=== PATIENT | male | born 1945 | race Caucasian/White ===

== ENCOUNTER 2021-02-25 13:48 | Inpatient (IN) | payer MEDICARE, MEDICAID ==
[~2021-02-25] VITALS: Ht 177.8 cm; Wt 76.5 kg
--- NOTE | 2021-02-25 14:02 | NUR ---
TAISHA. REPORT RECEIVED FROM EMS. TRANSFFERED FROM [facility]. PT C/O INTERMITTENT SOB X 3 DAYS. PER EMS, PT HAS SECOND DEGREE AV BLOCK TYPE 2. PT DENIES ANY SYMPTOMS IN ROOM NOW. PT'S AOX4. RESPS EVEN AND UNLABORED. ALL MONITORS IN PLACE. CALL LIGHT WITHIN REACH.
[2021-02-25] MEDS ORDERED: AMLO-150 PO (14:03)
[2021-02-25] MEDS ORDERED: CHLO25TA PO (14:03)
[2021-02-25] MEDS ORDERED: LISI-170 PO (14:04)
[2021-02-25] MEDS ORDERED: FURO20TA3 PO (14:04)
[2021-02-25] MEDS ORDERED: HYDR100T25 PO (14:05)
[2021-02-25] MEDS ORDERED: CLOP75TA PO (14:05)
[2021-02-25] MEDS ORDERED: SIMV40TA20 PO (14:06)
[2021-02-25] MEDS ORDERED: EZET10TA70 PO (14:07)
[2021-02-25] MEDS ORDERED: CLON0.1T22 PO (14:07)
[2021-02-25] MEDS ORDERED: POTASSIUM CL ER (14:08)
[2021-02-25] MEDS ORDERED: SITA100T PO (14:09)
--- NOTE | 2021-02-25 14:57 | NUR ---
PT RESTING IN [facility]. PT'S AOX4. RESPS EVEN AND UNLABORED. ALL MONITORS IN PLACE. CALL LIGHT WITHIN REACH.
[2021-02-25] MEDS ORDERED: SODIUM CHLORIDE FLUSH 10ML SYR IVF PRN (15:30)
--- NOTE | 2021-02-25 15:39 | NUR ---
REPORT GIVEN TO ALICIA PASTRANA. ALL QEUSTIONS ANSWERED.
[2021-02-25] MEDS ORDERED: ACETAMINOPHEN 325 MG TABLET PO PRN (16:00)
[2021-02-25] MEDS ORDERED: HYDROcodone/APAP 5/325 TABLET PO PRN (16:00)
[2021-02-25] MEDS ORDERED: morphine SULFATE 10 MG/ML, 1ML IVPush PRN (16:00)
[2021-02-25] MEDS: INSULIN REGULAR 100 UNITS/ML, 3ML VIAL SQ-INSULIN SCH ×2 (16:00→21:00)
[2021-02-25] MEDS ORDERED: NITROGLYCERIN 0.4 MG/SPRAY SL PRN (16:00)
[2021-02-25] MEDS ORDERED: DOCUSATE 100 MG CAPSULE PO PRN (16:00)
[2021-02-25] MEDS ORDERED: ONDANSETRON 2MG/ML, 2ML IVPush PRN (16:00)
[2021-02-25] MEDS ORDERED: METHOCARBAMOL 500 MG TABLET PO PRN (16:00)
[2021-02-25 16:15] VITALS: BP 164/71
[2021-02-25 18:01] LABS: ANION GAP 9 mmol/L (5-15); CALCIUM 9.6 mg/dL (8.5-10.1); CHLORIDE 112 mmol/L (98-107); CREATININE 1.26 mg/dL (0.7-1.3)
[2021-02-25 18:10] LABS: TROPONIN I 0.017 ng/mL (0.000-0.045)
[2021-02-25 18:30] VITALS: BP 177/72
[2021-02-25 19:26] VITALS: BP 184/77
[2021-02-25 19:34] VITALS: BP 193/65
[2021-02-25] MEDS ORDERED: AMLODIPINE 5 MG TABLET PO ONE (20:30)
[2021-02-25] MEDS ORDERED: FAMOTIDINE 20 MG/2 ML IVPush SCH (21:00)
[2021-02-25] MEDS: SIMVASTATIN 40 MG TABLET PO SCH (21:29)
[2021-02-25 23:01] LABS: TROPONIN I 0.028 ng/mL (0.000-0.045)
[2021-02-25 23:54] VITALS: BP 170/66
[2021-02-26 01:00] VITALS: BP 170/66
[2021-02-26 04:58] LABS: BASOPHILS % (AUTO) 1 % (0-1); EOSINOPHILS % (AUTO) 4 % (1-7); LYMPHOCYTES % (AUTO) 15 % (22-44); MEAN CORPUSCULAR HEMOGLOBIN 29.6 pg (27.5-34.5); MEAN CORPUSCULAR HGB CONC 32.9 g/dL (33.2-36.2); MEAN PLATELET VOLUME 9.8 fL (7.4-10.4); MONOCYTES % (AUTO) 11 % (2-9); NEUTROPHILS % (AUTO) 70 % (42-75); PLATELET COUNT 207 x10^3/uL (130-400); RED BLOOD COUNT 4.64 x10^6/uL (4.38-5.82)
[2021-02-26 05:04] LABS: ANION GAP 8 mmol/L (5-15); CALCIUM 9.3 mg/dL (8.5-10.1); CHLORIDE 112 mmol/L (98-107); CREATININE 1.28 mg/dL (0.7-1.3)
[2021-02-26 05:10] LABS: MD NO
[2021-02-26 07:00] VITALS: BP 178/67
[2021-02-26] MEDS: INSULIN REGULAR 100 UNITS/ML, 3ML VIAL SQ-INSULIN SCH ×4 (07:51→21:00)
[2021-02-26] MEDS: FAMOTIDINE 20 MG TABLET PO SCH ×2 (08:37→22:10)
[2021-02-26] MEDS: LINAGLIPTIN 5 MG TAB PO SCH (08:37)
[2021-02-26] MEDS: AMLODIPINE 5 MG TABLET PO SCH (08:37)
[2021-02-26] MEDS: CHLORTHALIDONE 25 MG TABLET PO SCH (08:38)
[2021-02-26] MEDS: LISINOPRIL 20 MG TABLET PO SCH (08:38)
[2021-02-26] MEDS: EZETIMIBE 10 MG TABLET PO SCH (08:38)
[2021-02-26] MEDS ORDERED: SODIUM CHLORIDE 0.9% 1,000 ML IV SCH (09:00)
[2021-02-26] MEDS ORDERED: CEFAZOLIN PMX 1GM/50ML 50 ML IVPB ONE (09:00)
[2021-02-26] MEDS ORDERED: FENTANYL PF 100 MCG/2ML ONE (11:19)
[2021-02-26] MEDS ORDERED: MIDAZOLAM 1 MG/ML, 5ML ONE (11:19)
[2021-02-26] MEDS ORDERED: CEFAZOLIN PMX 1GM/50ML 100 ML ONE (11:19)
[2021-02-26] MEDS ORDERED: CEFAZOLIN 1,000 MG ONE (11:20)
[2021-02-26] MEDS ORDERED: LIDOCAINE 2%, 20ML ONE (11:20)
[2021-02-26] MEDS ORDERED: DIPHENHYDRAMINE 50 MG/ML, 1ML ONE (11:44)
[2021-02-26] MEDS ORDERED: HOLD MEDICATION MC PRN (12:30)
[2021-02-26 14:10] VITALS: BP 151/66
[2021-02-26 18:00] VITALS: BP 168/75
[2021-02-26 20:10] VITALS: BP 167/83
[2021-02-26] MEDS: SODIUM CHLORIDE FLUSH 10ML SYR IVF SCH (22:10)
[2021-02-26] MEDS: SIMVASTATIN 40 MG TABLET PO SCH (22:10)
[2021-02-27 01:33] VITALS: BP 175/75
[2021-02-27] MEDS: ENALAPRILAT 1.25 MG/ML, 2ML IVPush PRN ×2 (01:42→02:34)
[2021-02-27 02:20] VITALS: BP 181/83
[2021-02-27 03:03] VITALS: BP 170/77
[2021-02-27 06:45] VITALS: BP 168/77
[2021-02-27] MEDS: LINAGLIPTIN 5 MG TAB PO SCH (08:27)
[2021-02-27] MEDS: FAMOTIDINE 20 MG TABLET PO SCH (08:27)
[2021-02-27] MEDS: EZETIMIBE 10 MG TABLET PO SCH (08:28)
[2021-02-27] MEDS: AMLODIPINE 5 MG TABLET PO SCH (08:28)
[2021-02-27] MEDS: CHLORTHALIDONE 25 MG TABLET PO SCH (08:29)
[2021-02-27] MEDS: LISINOPRIL 20 MG TABLET PO SCH (08:29)
[2021-02-27] MEDS: SODIUM CHLORIDE FLUSH 10ML SYR IVF SCH (08:39)
[2021-02-27] MEDS: INSULIN REGULAR 100 UNITS/ML, 3ML VIAL SQ-INSULIN SCH ×2 (08:47→12:10)
[2021-02-27 12:28] VITALS: BP 131/83
[2021-02-27 12:35] VITALS: BP 162/76
== END 2021-02-27 14:34 | disposition home or self-care (01) | DRG 243 ==
LOC: ED 15:30 → EDIP 15:47 → 5SO 15:58 → DCLOUNGE 02-27 14:24
PROVIDERS: ADMIT Family Medicine; ATTEND Family Medicine
PROC: 0JH606Z Insertion of Pacemaker, Dual Chamber into Chest Subcutaneous Tissue and Fascia, Open Approach (ICD-10-PCS; principal; 2021-02-26)
PROC: 02HK3JZ Insertion of Pacemaker Lead into Right Ventricle, Percutaneous Approach (ICD-10-PCS; 2021-02-26)
PROC: 02H63JZ Insertion of Pacemaker Lead into Right Atrium, Percutaneous Approach (ICD-10-PCS; 2021-02-26)
DX: I44.2 Atrioventricular block, complete (principal); N17.9 Acute kidney failure, unspecified; E11.65 Type 2 diabetes mellitus with hyperglycemia; E87.8 Other disorders of electrolyte and fluid balance, not elsewhere classified; E78.5 Hyperlipidemia, unspecified; E86.0 Dehydration; F17.200 Nicotine dependence, unspecified, uncomplicated; I12.9 Hypertensive chronic kidney disease with stage 1 through stage 4 chronic kidney disease, or unspecified chronic kidney disease; N18.9 Chronic kidney disease, unspecified; E11.22 Type 2 diabetes mellitus with diabetic chronic kidney disease; I25.10 Atherosclerotic heart disease of native coronary artery without angina pectoris; R79.89 Other specified abnormal findings of blood chemistry; Z82.49 Family history of ischemic heart disease and other diseases of the circulatory system; Z95.1 Presence of aortocoronary bypass graft
CPT/HCPCS: 33208; 36415; 71045; 80048; 82962; 83036; 83735; 84100; 84443; 84484; 85025; 93005; 93306; 96374; 99156; 99157; C1779; C1785; C1892; G0378; J0690; J2250; J3010; J1200; J7030